=== PATIENT | male | born 1950 | race Caucasian/White ===

== ENCOUNTER 2022-07-13 14:33 | Inpatient (IN) | payer OTHER, SELFPAY ==
[2022-07-13 14:53] VITALS: BP 173/96; PULSE 105; RESP 16; TEMP 36.6; O2SAT 97; BMI 50.1
[2022-07-13 17:02] VITALS: PULSE 18; RESP 16
--- NOTE | 2022-07-13 17:57 | XRR_ITS ---
PROCEDURE INFORMATION: Exam: XR Chest Exam date and time: 07/13/2022 6:33 PM Age: 71 years old Clinical indication: Shortness of breath; Additional info: Bloating TECHNIQUE: Imaging protocol: Radiologic exam of the chest. Views: 1 view. COMPARISON: No relevant prior studies available. FINDINGS: Lungs: Right lower lobe pneumonia. Pulmonary vascular congestion. Pleural spaces: Trace bilateral pleural effusions suspected. Heart/Mediastinum: Cardiomegaly. Bones/joints: Unremarkable. XR/XR chest 1V portable [id number] IMPRESSION: 1. Right lower lobe pneumonia. 2. Cardiomegaly. 3. Pulmonary vascular congestion. 4. Trace bilateral pleural effusions suspected.
--- NOTE | 2022-07-13 17:58 | ECG_ITS ---
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 Measurements Intervals [place] Rate: 105 P: LA: QRS: 29 QRSD: 93 T: 72 QT: 374 QTc: 496 Interpretive Statements ATRIAL FIBRILLATION WITH RAPID VENTRICULAR RESPONSE ABNORMAL RHYTHM ECG No previous ECG available for comparison Electronically Signed On 07-13-2022 21:48:07 CDT by Julianne Rees M.D. [id number]
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
[2022-07-13 20:01] LABS: Basophils % 0.3 %; Eosinophils % 0.6 %; Hematocrit 43.6 % (42.0-52.0); Hemoglobin 13.5 g/dL (11.7-16.6); Lymphocytes # 0.9 10^3/uL (0.8-4.8); Lymphocytes % 12.6 %; Mean Corpuscular Hemoglobin 30.3 pg (28.0-34.0); Mean Corpuscular Volume 97.8 fl (80-94); Mean Platelet Volume 10.7 fL (7.4-10.4); Monocytes # 0.7 10^3/uL (0.2-0.9); Monocytes % 10.4 %; Neutrophils # 5.15 10^3/uL (1.8-7.7); Neutrophils % 75.8 %; Nucleated Red Blood Cells % 0 %; Platelet Count 221 10^3/cmm (130-400); Red Blood Count 4.46 10^6/uL (4.1-5.3); Red Cell Distribution Width 14.8 % (12.1-15.1); White Blood Count 6.8 10^3/uL (4.0-10.0)
--- NOTE | 2022-07-13 20:05 | CTR_ITS ---
PROCEDURE INFORMATION: Exam: CT Abdomen And Pelvis Without Contrast Exam date and time: 07/13/2022 8:13 PM Age: 71 years old Clinical indication: Bloating; Prior surgery; Surgery type: Gastric. Appy. Gb; Patient HX: C/O abd distention. Banuelos in place. ; Additional info: Increasing distention TECHNIQUE: Imaging protocol: Computed tomography of the abdomen and pelvis without contrast. Radiation optimization: All CT scans at this facility use at least one of these dose optimization techniques: automated exposure control; mA and/or kV adjustment per patient size (includes targeted exams where dose is matched to clinical indication); or iterative reconstruction. COMPARISON: CR (CHEST, ) 07/13/2022 6:33 PM RADIATION DOSE METRICS: Total DLP (mGy-cm): 1289.4 FINDINGS: Lungs: Bibasilar atelectasis versus minimal infiltrate. Pleural spaces: Moderate bilateral pleural effusions. Liver: Normal. No mass. Gallbladder and bile ducts: Cholecystectomy. Pancreas: Normal. No ductal dilation. Spleen: Normal. No splenomegaly. Adrenal glands: Right adrenal 3.9 cm indeterminate nodule, dedicated nonemergent adrenal imaging could further evaluate this. Kidneys and ureters: Normal. No hydronephrosis. Stomach and bowel: Unremarkable. No obstruction. No mucosal thickening. Appendix: No evidence of appendicitis. Intraperitoneal space: Unremarkable. No free air. No significant fluid collection. Vasculature: Unremarkable. No abdominal aortic aneurysm. Lymph nodes: Unremarkable. No enlarged lymph nodes. Urinary bladder: Banuelos catheter in the urinary bladder. Reproductive: Unremarkable as visualized. Bones/joints: Unremarkable. No acute fracture. Soft tissues: Anasarca suspected. CT/CT abdomen pelvis wo con [id number] IMPRESSION: 1. Negative for acute inflammatory process in the abdomen or pelvis. 2. Moderate bilateral pleural effusions. 3. Bibasilar atelectasis versus minimal infiltrate. 4. Cholecystectomy. 5. Right adrenal 3.9 cm indeterminate nodule, dedicated nonemergent adrenal imaging could further evaluate this. 6. Anasarca suspected. 7. Banuelos catheter in the urinary bladder.
[2022-07-13 20:28] LABS: Alanine Aminotransferase 15 U/L (0-41); Albumin Level 3.4 g/dL (3.5-5.2); Alkaline Phosphatase 196 U/L (40-130); Anion Gap 13.3 (5-19); Aspartate Amino Transferase 21 U/L (0-40); Blood Urea Nitrogen 19 mg/dL (8-23); Carbon Dioxide 28 mmol/L (22-29); Chloride 102 mmol/L (98-107); Globulin 4.4 g/dL (1.3-4.6); Glucose 91 mg/dL (65-115); Lipase 21 U/L (13-60); NT Pro B Type Natriuretic Pept 7072 pg/mL (0-125); Osmolality Calculated 290 mOsm/kg (285-295); Potassium 4.3 mmol/L (3.5-5.1); Sodium 139 mmol/L (136-145); Total Bilirubin 1.1 mg/dL (0.15-1.2); Total Protein 7.8 g/dL (6.6-8.7)
[2022-07-13 21:13] LABS: Troponin T (5th) Once 33 ng/L (0-15)
[2022-07-13] MEDS: FUROsemide 10 mg/mL SDV 4mL 40 MG IVP (21:42)
[2022-07-13 22:00] VITALS: BP 166/109; PULSE 95; RESP 31; O2SAT 95
[2022-07-13 22:00] LABS: Add Urine Microscopic? YES; Bilirubin Urine Neg (Negative); Blood Urine 3+ (Negative); Glucose Urine UA Norm (Normal); Ketones Urine 1+ (Negative); Leukocyte Esterase Urine 1+ (Negative); Nitrate Urine Negative (Negative); Protein Urine 1+ (Negative); Urine Appearance Hazy (CLEAR); Urine Color Yellow (Yellow); Urobilinogen Urine 1 mg/dL (Negative); pH Urine 5 (5-7)
[2022-07-13 22:01] LABS: Add Urine Culture? Yes; Bacteria Urine 2+ /hpf; Calcium Oxalate Crystals Urine 1 /hpf; RBC Urine TOO NUMEROUS TO CNT /hpf (0-2); Squamous Epithelial Cell Urine 0-4 /hpf (0-5)
[2022-07-13 22:40] VITALS: BP 165/112; PULSE 95; RESP 31; O2SAT 95
[2022-07-14] VITALS (8 sets, daily range): BP systolic 119–164; BP diastolic 75–110; PULSE 77–103; RESP 16–18; TEMP 36.3–36.8; O2SAT 91–95; BMI 53.1
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
--- NOTE | 2022-07-14 00:19 | USCV_ITS ---
Transthoracic Echo w Contrast Philip Rust Age: 71 Gender: M : 1950 Exam Date: 07/14/2022 03:43 Ordering Phys: Yseika Dalton MD Technologist: AURELIA [place] [facility] [place]: New onset atrial fibrillation, CHF, Morbid obesity. BP: 165 / 112 HR: 95 Rhythm: Atrial fibrillation Technical Quality: Poor because of body habitus MEASUREMENTS (Male / Female) Normal Values 2D ECHO LV Diastolic Diameter PLAX 4.9 cm 4.2 - 5.9 / 3.9 - 5.3 cm LV Systolic Diameter PLAX 4.0 cm IVS Diastolic Thickness 1.7 cm 0.6 - 1.0 / 0.6 - 0.9 cm IVS Systolic Thickness 2.4 cm LVPW Diastolic Thickness 1.2 cm 0.6 - 1.0 / 0.6 - 0.9 cm LVPW Systolic Thickness 1.4 cm LVOT Diameter 2.3 cm LV Ejection Fraction 2D Teich 36.3 % LV Ejection Fraction MOD 2C 51.1 % LV Ejection Fraction 2C AL 52.2 % LA Diameter 4.8 cm LA Width 5.0 cm LA Height 7.1 cm RA Width 5.7 cm RA Height 6.3 cm Aorta at Sinotubular Diameter 2.8 cm M-MODE Aortic Annulus Diameter 3.1 cm LA Ao Ratio MM 1.6 MV E Point Septal Separation 0.9 cm DOPPLER AV Peak Velocity 153.0 cm/s LVOT Peak Velocity 81.0 cm/s AV Area Cont Eq vti 2.0 cm squared AV Area Cont Eq pk 2.3 cm squared MV Peak Velocity 184.0 cm/s MV Area PHT 4.2 cm squared MV E' Velocity 82.0 cm/s Mitral E to MV E' Ratio 18.9 Mitral E to LV E' Lateral Ratio 18.2 Mitral E to LV E' Septal Ratio 19.6 TR Peak Velocity 332.0 cm/s TR Peak Gradient 44.1 mmHg TV Peak E Velocity 63.0 cm/s Right Atrial Pressure 10.0 mmHg Pulmonary Artery Systolic Pressu 54.1 mmHg PV Peak Velocity 114.0 cm/s RV Acceleration Time 0.1 s RV Ejection Time 0.3 s RV AcT/ET 0.4 FINDINGS Left Ventricle Normal left ventricular cavity size. Normal left ventricular systolic function. Left ventricular ejection fraction is estimated at 55 %. No diagnostic regional wall motion abnormality. Abnormal septal motion. Rhythm precludes evaluation of diastolic function. Right Ventricle Normal right ventricular size and low normal systolic function. Right ventricular systolic pressure 57 mmHg. Right Atrium Normal right atrial size. Left Atrium Mildly increased left atrial size. Mitral Valve Mild mitral annular calcification. Structurally normal mitral valve. No mitral valve stenosis. Mild mitral valve regurgitation. Aortic Valve Aortic valve not well visualized. Probably trileaflet aortic valve. No aortic valve stenosis. No aortic valve regurgitation. Tricuspid Valve Structurally normal tricuspid valve. No tricuspid valve stenosis. Mild tricuspid valve regurgitation. Pulmonic Valve Pulmonic valve not well visualized. Pericardium No pericardial effusion. Aorta Normal-sized aortic root. IVC Inferior vena cava not visualized. CONCLUSIONS 1. This is a technically difficult study. Optison was used per protocol. 2. Normal left ventricular cavity size and left ventricular systolic function. Left ventricular ejection fraction is estimated at 55%. No diagnostic regional wall motion abnormality. Abnormal septal motion. 3. Normal right ventricular size and low normal systolic function. 4. Moderate pulmonary hypertension with pulmonary pressure estimated at 57 mmHg. 5. Mild mitral and tricuspid valve regurgitation. 6. No prior similar studies to compare. Miya Fitch MD (Electronically Signed) Final Date: 14 July 2022 12:40 S
--- NOTE | 2022-07-14 00:19 | USCV_ITS ---
Philip Rust Age: 71 Gender: M : 1950 Exam Date: 07/14/2022 03:05 Ordering Phys: Yesika Dalton MD Technologist: AURELIA [place] [facility] [place]ication: Morbid obesity. increased LE edema x 4 days. History of DVT and pulmonary emboli. Patient is a poor historian. HISTORY: Morbid obesity. increased LE edema x 4 days. History of DVT and pulmonary emboli. Patient is a poor historian. PROCEDURES: Venous duplex imaging was performed in bilateral lower extremities. The venous duplex Doppler examination of both lower extremities was performed in the standard fashion. The following venous structures were evaluated: common femoral vein, profunda vein, proximal portion of the greater saphenous vein, superficial femoral vein, and the popliteal vein. In addition, the posterior tibial veins were evaluated. Serial compression, augmentation maneuvers, and spectral Doppler flow evaluation were performed, which were normal. Bilaterally, the common femoral, superficial femoral, profunda femoral, popliteal, posterior tibial, and greater saphenous veins were identified and interrogated in the standard fashion. These veins were found to be easily compressible with spontaneous blood flow. No evidence of thrombus noted. CONCLUSIONS No evidence of right lower extremity DVT. No evidence of left lower extremity DVT. Wilfred Hernandez MD (Electronically Signed) Final Date: 14 July 2022 09:04 S
[2022-07-14] MEDS: metoprolol tartrate 25 mg Tablet 12.5 MG PO ×3 (01:27→20:15)
[2022-07-14] MEDS: ALPRAZolam 0.5 mg Tablet PO ×2 (01:27→20:13)
[2022-07-14] MEDS: enoxaparin 40 mg/0.4 mL Syringe SUBCUT (01:28)
[2022-07-14] MEDS: perflutren protein-a microsphr 0.22 mg/mL SDV 3 mL IV (05:33)
--- NOTE | 2022-07-14 08:25 | PC.PHAR ---
pt states he takes no rx medications-pt states he would like to use the meds to beds
--- NOTE | 2022-07-14 08:46 | ECG_ITS ---
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 Measurements Intervals [place] Rate: 102 P: [place]: QRS: 35 QRSD: 96 T: 100 QT: 388 QTc: 505 Interpretive Statements ATRIAL FIBRILLATION WITH RAPID VENTRICULAR RESPONSE NONSPECIFIC T-WAVE ABNORMALITY Compared to ECG 07/13/2022 18:27:17 T-wave abnormality now present Electronically Signed On 07-14-2022 12:08:40 CDT by Miya Fitch M.D. [id number]
[2022-07-14] MEDS: FUROsemide 10 mg/mL SDV 4mL 40 MG IVP ×2 (09:03→21:26)
[2022-07-14] MEDS: pantoprazole DR 40 mg Tablet PO ×2 (09:04→20:13)
[2022-07-14] MEDS: tamsulosin 0.4 mg Capsule PO (09:05)
[2022-07-14] MEDS: heparin 5,000 unit/mL INJ 1 mL IV (09:10)
[2022-07-14] MEDS: heparin drip 25,000 UNIT/500 ML PREMIX 36 UNIT IV (09:28)
[2022-07-14 10:02] LABS: Platelet Count 224 10^3/cmm (130-400)
[2022-07-14 10:18] LABS: Troponin(5th) Baseline 36 ng/L (0-15)
[2022-07-14] MEDS: cefTRIAXone 1,000 MG in sodium chloride 0.9% (plus) 50 ML 100 MG IV (10:30)
--- NOTE | 2022-07-14 10:40 | PM.PN ---
Subjective Subjective: Patient was seen this morning, he complains of generalized anasarca, bilateral extremity edema, does not complain of chest pain, no shortness of breath Vitals/I&O/Wt Last Vital Signs Temp 97.5 F L 07/14/22 07:50 Pulse 86 07/14/22 07:50 Resp 18 07/14/22 07:50 BP 128/75 07/14/22 07:50 Pulse Ox 91 07/14/22 07:50 O2 Del Method 07/14/22 07:50 07/13/22 07/14/22 07/14/22 22:59 06:59 14:59 Intake Total 50 / 50 360 / 360 Output Total 4700 / 4700 1000 / 1000 Balance -4650 / -4650 -640 / -640 Weight last 48 hrs Weight 158.757 kg Weight 149.685 kg Physical Exam Const: COMMON NORMALS: no acute distress and patient oriented x3 Resp: COMMON NORMALS: normal respiratory effort, No retractions, No use of accessory muscles and clear to auscultation bilaterally AUSCULTATION: clear to auscultation bilaterally Cardio: COMMON NORMALS: regular rate, regular rhythm, S1 normal heart sound present and S2 normal heart sound present RATE: regular rate RHYTHM: regular rhythm HEART SOUNDS: S1 normal heart sound present and S2 normal heart sound present GI: COMMON NORMALS: Normal to inspection, nondistended, normoactive bowel sounds present, Soft to palpation and non-tender PALPATION: Yes Soft to palpation OTHER: Has generalized anasarca Neuro: COMMON NORMALS: patient oriented x3 Psych: COMMON NORMALS: mental status grossly normal Skin: NARRATIVE SKIN EXAM: Has bilateral 2+ pitting edema Urinary Catheter Management: Banuelos: Cath Placed During This Visit: yes Reason for Continuing Indwelling Catheter: Acute Urinary Retention or Obstruction Urinary Catheter Date of Insertion: 07/13/22 Data : 07/14/22 09:30 07/13/22 19:48 A&P Assessment and plan (1) Atrial fibrillation: (2) Anasarca: Plan 71-year-old male with a past medical history of hypertension, presenting today with chief complaints of progressively increasing lower extremity and abdominal swelling, clinically appearing to be anasarca. Source is currently under evaluation Given lower extremity swelling, bilateral pleural effusions, pulmonary congestion on chest x-ray, elevated BNP, atrial fibrillation and a possible history of valvular issues, suspect that may be related to underlying CHF. Will obtain echocardiogram to estimate EF, diastolic function, evaluate for valvular function. Other possibilities for diffuse anasarca include underlying liver cirrhosis given history of daily alcohol consumption, however his LFTs are currently within normal limits and liver appears to be normal on CAT scan from today. His albumin is normal range at 3.4. Patient had urinary retention, needed placement of Banuelos catheter by urology, denies any known history of CKD. Creatinine today is normal at 0.9. Less likely that anasarca related to CKD. denies any past history of COPD, echocardiogram ordered to evaluate for any right heart failure. Start Lasix 40 mg IV every 12 hours Monitor urine output and renal function closely. Screen for diabetes mellitus given morbid obesity, check lipid panel. New onset atrial fibrillation, currently rate controlled, check EKG and troponin series. No acute ST-T wave changes noted currently. will start low-dose metoprolol and monitor for response. CHADS2 vascular score assuming history of at least hypertension is at 2. may have additional points added if w/up confirms CHF. Reports a past history of Hb 3.2 needing several units blood transfusion. Uncertain if this was related to GI bleed. Per patient no cause was able to be determined at the time. Will obtain records from [facility]. 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
--- NOTE | 2022-07-14 10:46 | ECG_ITS ---
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 Measurements Intervals [place] Rate: 80 P: [place]: QRS: 32 QRSD: 95 T: 88 QT: 391 QTc: 453 Interpretive Statements ATRIAL FIBRILLATION WITH ABERRANT CONDUCTION OR VENTRICULAR PREMATURE COMPLEXES NONSPECIFIC T-WAVE ABNORMALITY ABNORMAL RHYTHM ECG Compared to ECG 07/14/2022 09:04:43 Ventricular premature complex(es) now present Aberrant conduction of supraventricular beat(s) now present T-wave abnormality still present Electronically Signed On 07-14-2022 12:13:12 CDT by Miya Fitch M.D. [id number]
[2022-07-14 11:03] LABS: Ferritin 39 ng/mL (30-400); Iron 41 ug/dL (59-158); Percent Saturation 15.4 % (20-50); Total Iron Binding Capacity 266 mcg/dl; Unsaturated Iron Binding 225 ug/dL (112-347)
[2022-07-14 12:04] LABS: Troponin 5 2HR 29.21 ng/L (0-15)
[2022-07-14 12:05] LABS: Troponin 5 2HR Delta -6.79 ABS# (0-10)
[2022-07-14] MEDS: sucralfate 1 gm Tablet PO ×3 (13:19→20:15)
--- NOTE | 2022-07-14 14:46 | ECG_ITS ---
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 Measurements Intervals [place] Rate: 97 P: [place]: QRS: 33 QRSD: 92 T: 69 QT: 389 QTc: 495 Interpretive Statements ATRIAL FIBRILLATION ABNORMAL RHYTHM ECG Compared to ECG 07/14/2022 10:44:37 Ventricular premature complex(es) no longer present Aberrant conduction of supraventricular beat(s) no longer present T-wave abnormality no longer present Electronically Signed On 07-14-2022 16:26:27 CDT by Miya Fitch M.D. [id number]
[2022-07-14 16:13] LABS: Troponin 5 6HR 32.11 ng/L (0-15)
[2022-07-14 16:20] LABS: Partial Thromboplastin Time 140.9 SECONDS (23.9-36.7)
[2022-07-14 16:32] LABS: Troponin 5 6HR Delta -3.89 ng/L (0-12)
[2022-07-14] MEDS: ferrous sulfate EC 325 mg Tablet PO (17:20)
[2022-07-14 19:08] LABS: Basophils % 0.3 %; Eosinophils # 0.1 10^3/uL (0.0-0.8); Hematocrit 39.3 % (42.0-52.0); Hemoglobin 11.9 g/dL (11.7-16.6); Lymphocytes # 0.8 10^3/uL (0.8-4.8); Lymphocytes % 11.3 %; Mean Corpuscular HGB Conc 30.3 g/dL (30.0-36.0); Mean Corpuscular Hemoglobin 29.5 pg (28.0-34.0); Mean Corpuscular Volume 97.5 fl (80-94); Mean Platelet Volume 10.7 fL (7.4-10.4); Monocytes # 0.7 10^3/uL (0.2-0.9); Monocytes % 10.7 %; Neutrophils # 4.99 10^3/uL (1.8-7.7); Neutrophils % 75.4 %; Nucleated Red Blood Cells % 0 %; Platelet Count 179 10^3/cmm (130-400); Red Blood Count 4.03 10^6/uL (4.1-5.3); Red Cell Distribution Width 14.8 % (12.1-15.1); White Blood Count 6.6 10^3/uL (4.0-10.0)
--- NOTE | 2022-07-14 19:35 | PC.NURSE ---
BEDSIDE REPORT TAKEN FROM JASIEL DOUGLAS. PATIENT A&O, VSS. NO FURTHER NEEDS AT THIS TIME.
[2022-07-14 19:38] LABS: Partial Thromboplastin Time 130.5 SECONDS (23.9-36.7)
[2022-07-14 23:12] LABS: Partial Thromboplastin Time 75.2 SECONDS (23.9-36.7)
[2022-07-14] MEDS: heparin drip 25,000 UNIT/500 ML PREMIX 25 UNIT IV (23:37)
[2022-07-15] VITALS (8 sets, daily range): BP systolic 123–156; BP diastolic 72–99; PULSE 81–106; RESP 17–22; TEMP 36.3–36.9; O2SAT 88–97
[2022-07-15 05:28] LABS: Basophils % 0.3 %; Eosinophils # 0.2 10^3/uL (0.0-0.8); Eosinophils % 2.3 %; Hematocrit 40.7 % (42.0-52.0); Hemoglobin 12.4 g/dL (11.7-16.6); Mean Corpuscular HGB Conc 30.5 g/dL (30.0-36.0); Mean Corpuscular Hemoglobin 29.5 pg (28.0-34.0); Mean Corpuscular Volume 96.7 fl (80-94); Mean Platelet Volume 10.6 fL (7.4-10.4); Monocytes # 0.7 10^3/uL (0.2-0.9); Monocytes % 11.4 %; Neutrophils # 4.58 10^3/uL (1.8-7.7); Neutrophils % 70.8 %; Nucleated Red Blood Cells % 0 %; Platelet Count 194 10^3/cmm (130-400); Red Blood Count 4.21 10^6/uL (4.1-5.3); Red Cell Distribution Width 14.8 % (12.1-15.1); White Blood Count 6.5 10^3/uL (4.0-10.0)
[2022-07-15 05:39] LABS: Partial Thromboplastin Time 69.4 SECONDS (23.9-36.7)
[2022-07-15 05:53] LABS: Alanine Aminotransferase 12 U/L (0-41); Albumin Level 2.9 g/dL (3.5-5.2); Alkaline Phosphatase 164 U/L (40-130); Anion Gap 11.3 (5-19); Aspartate Amino Transferase 16 U/L (0-40); Blood Urea Nitrogen 16 mg/dL (8-23); Calcium 8.2 mg/dL (8.5-10.5); Carbon Dioxide 32 mmol/L (22-29); Chloride 99 mmol/L (98-107); Creatinine Clr Calc Pharmacy 122.1041; Globulin 3.8 g/dL (1.3-4.6); Glucose 89 mg/dL (65-115); Osmolality Calculated 289 mOsm/kg (285-295); Potassium 3.3 mmol/L (3.5-5.1); Sodium 139 mmol/L (136-145); Thyroid Stimulating Hormone 2.19 uIU/mL (0.27-4.20); Total Protein 6.7 g/dL (6.6-8.7)
[2022-07-15] MEDS: sucralfate 1 gm Tablet PO ×4 (06:12→20:46)
[2022-07-15] MEDS: potassium chloride ER 20 mEq Tablet 40 MEQ PO ×2 (10:02→20:46)
[2022-07-15] MEDS: ferrous sulfate EC 325 mg Tablet PO ×2 (10:02→17:16)
[2022-07-15] MEDS: FUROsemide 10 mg/mL SDV 4mL 40 MG IVP ×2 (10:03→20:47)
[2022-07-15] MEDS: tamsulosin 0.4 mg Capsule PO (10:03)
[2022-07-15] MEDS: cefTRIAXone 1,000 MG in sodium chloride 0.9% (plus) 50 ML 100 MG IV (10:04)
[2022-07-15] MEDS: pantoprazole DR 40 mg Tablet PO ×2 (10:04→20:47)
[2022-07-15] MEDS: metoprolol tartrate 25 mg Tablet 12.5 MG PO ×2 (10:06→20:46)
--- NOTE | 2022-07-15 10:09 | PM.PN ---
Subjective Subjective: Patient was seen this morning, he tells me he continues to feel fluid overloaded, trouble moving due to fluid overload Vitals/I&O/Wt Last Vital Signs Temp 98.1 F 07/15/22 07:37 Pulse 81 07/15/22 07:37 Resp 17 07/15/22 07:37 BP 156/99 07/15/22 07:37 Pulse Ox 95 07/15/22 07:37 O2 Del Method 07/15/22 07:37 07/14/22 07/15/22 07/15/22 22:59 06:59 14:59 Intake Total 300.6 / 830.6 812.4 / 1643.0 120 / 120 Output Total 1000 / 3000 2600 / 5600 Balance -699.4 / -2169.4 -1787.6 / -3957.0 120 / 120 Weight last 48 hrs Weight 152.226 kg Weight 158.757 kg Weight 149.685 kg Physical Exam Const: COMMON NORMALS: no acute distress and patient oriented x3 Resp: COMMON NORMALS: normal respiratory effort, No retractions, No use of accessory muscles and clear to auscultation bilaterally AUSCULTATION: clear to auscultation bilaterally Cardio: COMMON NORMALS: regular rate, regular rhythm, S1 normal heart sound present and S2 normal heart sound present RATE: regular rate RHYTHM: regular rhythm HEART SOUNDS: S1 normal heart sound present and S2 normal heart sound present GI: COMMON NORMALS: Normal to inspection, nondistended, normoactive bowel sounds present and non-tender Extremity: NARRATIVE EXTREMITY EXAM: 2+ pitting edema, generalized anasarca Neuro: COMMON NORMALS: patient oriented x3 Psych: COMMON NORMALS: mental status grossly normal Urinary Catheter Management: Banuelos: Cath Placed During This Visit: yes Reason for Continuing Indwelling Catheter: Not indwelling catheter Urinary Catheter Date of Insertion: 07/13/22 Data : 07/15/22 05:21 07/15/22 05:21 Micro: Microbiology 07/13/22 20:08 Urine Culture - Preliminary Urine,Clean Catch Gram Negative Rods A&P Assessment and plan (1) Atrial fibrillation: (2) Anasarca: Plan 71-year-old male with a past medical history of hypertension, presenting today with chief complaints of progressively increasing lower extremity and abdominal swelling, clinically appearing to be anasarca. Source is currently under evaluation Given lower extremity swelling, bilateral pleural effusions, pulmonary congestion on chest x-ray, elevated BNP, atrial fibrillation and a possible history of valvular issues, suspect that may be related to underlying CHF. Will obtain echocardiogram to estimate EF, diastolic function, evaluate for valvular function. Other possibilities for diffuse anasarca include underlying liver cirrhosis given history of daily alcohol consumption, however his LFTs are currently within normal limits and liver appears to be normal on CAT scan from today. His albumin is normal range at 3.4. Patient had urinary retention, needed placement of Banuelos catheter by urology, denies any known history of CKD. Creatinine today is normal at 0.9. Less likely that anasarca related to CKD. denies any past history of COPD, echocardiogram ordered to evaluate for any right heart failure. Start Lasix 40 mg IV every 12 hours Monitor urine output and renal function closely. Screen for diabetes mellitus given morbid obesity, check lipid panel. New onset atrial fibrillation, currently rate controlled, check EKG and troponin series. No acute ST-T wave changes noted currently. will start low-dose metoprolol and monitor for response. CHADS2 vascular score assuming history of at least hypertension is at 2. may have additional points added if w/up confirms CHF. Reports a past history of Hb 3.2 needing several units blood transfusion. Uncertain if this was related to GI bleed. Per patient no cause was able to be determined at the time. Will obtain records from [facility]. 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
[2022-07-15 13:28] LABS: Partial Thromboplastin Time 54.7 SECONDS (23.9-36.7)
[2022-07-15] MEDS: heparin 5,000 unit/mL INJ 1 mL 2800 UNIT IVP (15:08)
[2022-07-15] MEDS: heparin drip 25,000 UNIT/500 ML PREMIX 28 UNIT IV (19:20)
[2022-07-15] MEDS: ALPRAZolam 0.5 mg Tablet PO (20:46)
[2022-07-16] VITALS (8 sets, daily range): BP systolic 119–155; BP diastolic 71–95; PULSE 76–105; RESP 16–19; TEMP 36.4–36.8; O2SAT 90–97
[2022-07-16] MEDS: acetaminophen 325 mg Tablet 650 MG PO (02:10)
[2022-07-16] MEDS: bacitracin ointment 28 gm 1 APPLIC TOPICAL (03:12)
[2022-07-16 05:08] LABS: Basophils % 0.2 %; Eosinophils # 0.2 10^3/uL (0.0-0.8); Eosinophils % 2.6 %; Hematocrit 40.7 % (42.0-52.0); Hemoglobin 12.3 g/dL (11.7-16.6); Lymphocytes # 0.9 10^3/uL (0.8-4.8); Lymphocytes % 13.5 %; Mean Corpuscular HGB Conc 30.2 g/dL (30.0-36.0); Mean Corpuscular Hemoglobin 29.3 pg (28.0-34.0); Mean Corpuscular Volume 96.9 fl (80-94); Monocytes # 0.9 10^3/uL (0.2-0.9); Monocytes % 13.3 %; Neutrophils # 4.58 10^3/uL (1.8-7.7); Neutrophils % 70.1 %; Nucleated Red Blood Cells % 0 %; Platelet Count 197 10^3/cmm (130-400); Red Cell Distribution Width 14.7 % (12.1-15.1); White Blood Count 6.5 10^3/uL (4.0-10.0)
[2022-07-16 05:36] LABS: Partial Thromboplastin Time 48.9 SECONDS (23.9-36.7)
[2022-07-16 05:49] LABS: Blood Urea Nitrogen 15 mg/dL (8-23); Calcium 8.3 mg/dL (8.5-10.5); Carbon Dioxide 32 mmol/L (22-29); Chloride 97 mmol/L (98-107); Creatinine Clr Calc Pharmacy 122.1041; Glucose 97 mg/dL (65-115); Osmolality Calculated 287 mOsm/kg (285-295); Sodium 138 mmol/L (136-145)
[2022-07-16] MEDS: heparin 5,000 unit/mL INJ 1 mL IV (05:56)
[2022-07-16] MEDS: sucralfate 1 gm Tablet PO ×4 (05:57→20:09)
[2022-07-16] MEDS: cefTRIAXone 1,000 MG in sodium chloride 0.9% (plus) 50 ML 100 MG IV (07:47)
[2022-07-16] MEDS: tamsulosin 0.4 mg Capsule PO (07:47)
[2022-07-16] MEDS: pantoprazole DR 40 mg Tablet PO ×2 (07:48→20:09)
[2022-07-16] MEDS: potassium chloride ER 20 mEq Tablet 40 MEQ PO ×2 (07:48→20:09)
[2022-07-16] MEDS: ferrous sulfate EC 325 mg Tablet PO ×2 (07:48→16:45)
[2022-07-16] MEDS: metoprolol tartrate 25 mg Tablet 12.5 MG PO ×2 (08:04→20:09)
[2022-07-16] MEDS: FUROsemide 10 mg/mL SDV 4mL 40 MG IVP ×2 (09:19→20:12)
[2022-07-16] MEDS: spironolactone 25 mg Tablet PO (09:20)
--- NOTE | 2022-07-16 11:57 | PC.SOCIAL ---
IMM update IMM updated with patient. Verbalized an understanding. Copy Pg 2 provided. Initialled, dated, timed, and placed in chart.
[2022-07-16] MEDS: heparin drip 25,000 UNIT/500 ML PREMIX 31 UNIT IV (12:00)
[2022-07-16 12:36] LABS: Partial Thromboplastin Time 94.5 SECONDS (23.9-36.7)
--- NOTE | 2022-07-16 12:55 | PM.PN ---
Subjective Subjective: Patient was seen this morning, he tells me that he continues to complain of weakness, no nausea, no vomiting, no bloody or black stools, he does feel better Vitals/I&O/Wt Last Vital Signs Temp 97.6 F 07/16/22 11:28 Pulse 88 07/16/22 11:28 Resp 17 07/16/22 11:28 BP 128/88 07/16/22 11:28 Pulse Ox 93 07/16/22 11:28 O2 Del Method 07/16/22 11:28 07/15/22 07/16/22 07/16/22 22:59 06:59 14:59 Intake Total 172.083 / 790.000 297.267 / 1087.267 717.55 / 717.55 Output Total 2350 / 3550 1450 / 5000 1000 / 1000 Balance -2177.917 / -2760.000 -1152.733 / -3912.733 -282.45 / -282.45 Weight last 48 hrs Weight 152.226 kg Physical Exam Const: COMMON NORMALS: no acute distress and patient oriented x3 Resp: COMMON NORMALS: normal respiratory effort, No retractions, No use of accessory muscles and clear to auscultation bilaterally AUSCULTATION: clear to auscultation bilaterally Cardio: COMMON NORMALS: regular rate, regular rhythm, S1 normal heart sound present and S2 normal heart sound present RATE: regular rate RHYTHM: regular rhythm HEART SOUNDS: S1 normal heart sound present and S2 normal heart sound present GI: COMMON NORMALS: Normal to inspection, nondistended, normoactive bowel sounds present and non-tender Extremity: NARRATIVE EXTREMITY EXAM: Generalized anasarca, 2+ pitting edema Neuro: COMMON NORMALS: patient oriented x3 Psych: COMMON NORMALS: mental status grossly normal Urinary Catheter Management: Banuelos: Cath Placed During This Visit: yes Reason for Continuing Indwelling Catheter: Acute Urinary Retention or Obstruction Urinary Catheter Date of Insertion: 07/13/22 Data : 07/16/22 04:29 07/16/22 04:29 Micro: Microbiology 07/13/22 20:08 Urine Culture - Preliminary Urine,Clean Catch Gram Negative Rods A&P Assessment and plan (1) Atrial fibrillation: (2) Anasarca: (3) UTI (urinary tract infection): Plan 71-year-old male with a past medical history of hypertension, presenting today with chief complaints of progressively increasing lower extremity and abdominal swelling, clinically appearing to be anasarca. Source is currently under evaluation Given lower extremity swelling, bilateral pleural effusions, pulmonary congestion on chest x-ray, elevated BNP, atrial fibrillation and a possible history of valvular issues, suspect that may be related to underlying CHF. Will obtain echocardiogram to estimate EF, diastolic function, evaluate for valvular function. Other possibilities for diffuse anasarca include underlying liver cirrhosis given history of daily alcohol consumption, however his LFTs are currently within normal limits and liver appears to be normal on CAT scan from today. His albumin is normal range at 3.4. Patient had urinary retention, needed placement of Banuelos catheter by urology, denies any known history of CKD. Creatinine today is normal at 0.9. Less likely that anasarca related to CKD. denies any past history of COPD, echocardiogram ordered to evaluate for any right heart failure. Patient is -12 liters Continue Lasix 40 mg IV every 12 hours Monitor urine output and renal function closely. Screen for diabetes mellitus given morbid obesity, check lipid panel. New onset atrial fibrillation, currently rate controlled, check EKG and troponin series. No acute ST-T wave changes noted currently. will start low-dose metoprolol and monitor for response. CHADS2 vascular score assuming history of at least hypertension is at 2. may have additional points added if w/up confirms CHF. Reports a past history of Hb 3.2 needing several units blood transfusion. Uncertain if this was related to GI bleed. Per patient no cause was able to be determined at the time. Will obtain records from [facility]. 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
[2022-07-16] MEDS: apixaban 5 mg Tablet PO (13:16)
[2022-07-16] MEDS: ALPRAZolam 0.5 mg Tablet PO (20:09)
[2022-07-17] VITALS (7 sets, daily range): BP systolic 125–151; BP diastolic 71–87; PULSE 72–103; RESP 16–18; TEMP 36.3–36.8; O2SAT 90–93
[2022-07-17] MEDS: apixaban 5 mg Tablet PO ×2 (00:29→12:56)
[2022-07-17 05:23] LABS: Basophils % 0.4 %; Eosinophils # 0.3 10^3/uL (0.0-0.8); Eosinophils % 4.6 %; Hematocrit 42.3 % (42.0-52.0); Lymphocytes # 1.2 10^3/uL (0.8-4.8); Mean Corpuscular HGB Conc 30.7 g/dL (30.0-36.0); Mean Corpuscular Hemoglobin 29.5 pg (28.0-34.0); Mean Corpuscular Volume 95.9 fl (80-94); Mean Platelet Volume 11.5 fL (7.4-10.4); Monocytes # 0.6 10^3/uL (0.2-0.9); Monocytes % 11.4 %; Neutrophils % 62.4 %; Nucleated Red Blood Cells % 0 %; Platelet Count 217 10^3/cmm (130-400); Red Blood Count 4.41 10^6/uL (4.1-5.3); Red Cell Distribution Width 14.7 % (12.1-15.1); White Blood Count 5.6 10^3/uL (4.0-10.0)
[2022-07-17 05:55] LABS: Estmated Average Glucose 94; Hemoglobin A1C 4.9 % (4.0-6.0)
[2022-07-17 05:58] LABS: Anion Gap 13.3 (5-19); Blood Urea Nitrogen 17 mg/dL (8-23); Calcium 8.7 mg/dL (8.5-10.5); Carbon Dioxide 29 mmol/L (22-29); Chloride 96 mmol/L (98-107); Creatinine Clr Calc Pharmacy 122.1041; Glucose 72 mg/dL (65-115); NT Pro B Type Natriuretic Pept 2668 pg/mL (0-125); Osmolality Calculated 278 mOsm/kg (285-295); Potassium 4.3 mmol/L (3.5-5.1); Sodium 134 mmol/L (136-145)
[2022-07-17] MEDS: sucralfate 1 gm Tablet PO ×4 (06:03→19:33)
[2022-07-17] MEDS: metoprolol tartrate 25 mg Tablet 12.5 MG PO ×2 (08:17→19:33)
[2022-07-17] MEDS: cefTRIAXone 1,000 MG in sodium chloride 0.9% (plus) 50 ML 100 MG IV (08:17)
[2022-07-17] MEDS: pantoprazole DR 40 mg Tablet PO ×2 (08:18→19:29)
[2022-07-17] MEDS: tamsulosin 0.4 mg Capsule PO (08:18)
[2022-07-17] MEDS: spironolactone 25 mg Tablet PO (08:18)
[2022-07-17] MEDS: nystatin powder 15 gm Btl 1 APPLIC TOPICAL ×2 (08:18→17:11)
[2022-07-17] MEDS: ferrous sulfate EC 325 mg Tablet PO ×2 (08:18→17:11)
[2022-07-17] MEDS: FUROsemide 10 mg/mL SDV 4mL 40 MG IVP ×2 (10:45→22:44)
--- NOTE | 2022-07-17 14:48 | P.PN_ITS ---
Subjective Subjective: Patient was seen this morning, he tells me he feels a lot better, but still feels distended, still has edema Vitals/I&O/Wt Last Vital Signs Temp 98.1 F 07/17/22 11:56 Pulse 76 07/17/22 11:56 Resp 16 07/17/22 11:56 BP 137/76 07/17/22 11:56 Pulse Ox 92 07/17/22 11:56 O2 Del Method 07/17/22 11:56 07/16/22 07/17/22 07/17/22 22:59 06:59 14:59 Intake Total 397.967 / 1115.517 650 / 650 Output Total 2100 / 4400 3400 / 3400 Balance 397.967 / -1184.483 -2100 / -3284.483 -2750 / -2750 Physical Exam Const: COMMON NORMALS: no acute distress and patient oriented x3 Resp: COMMON NORMALS: normal respiratory effort, No retractions, No use of accessory muscles and clear to auscultation bilaterally AUSCULTATION: clear to auscultation bilaterally Cardio: COMMON NORMALS: regular rate, regular rhythm, S1 normal heart sound present and S2 normal heart sound present RATE: regular rate RHYTHM: regular rhythm HEART SOUNDS: S1 normal heart sound present and S2 normal heart sound present GI: COMMON NORMALS: Normal to inspection, nondistended, normoactive bowel sounds present, non-tender and no masses Extremity: NARRATIVE EXTREMITY EXAM: 1+ pitting edema, generalized anasarca, improving Neuro: COMMON NORMALS: patient oriented x3 Psych: COMMON NORMALS: mental status grossly normal Urinary Catheter Management: Banuelos: Cath Placed During This Visit: yes Reason for Continuing Indwelling Catheter: Accurate Measurement of Urinary Output in Critically Ill Patients Urinary Catheter Date of Insertion: 07/13/22 Data : 07/17/22 03:50 07/17/22 03:50 Micro: Microbiology 07/13/22 20:08 Urine Culture - Final Urine,Clean Catch Proteus mirabilis A&P Assessment and plan (1) Atrial fibrillation: (2) Anasarca: (3) UTI (urinary tract infection): Plan 71-year-old male with a past medical history of hypertension, presenting today with chief complaints of progressively increasing lower extremity and abdominal swelling, clinically appearing to be anasarca. Source is currently under evaluation Given lower extremity swelling, bilateral pleural effusions, pulmonary congestion on chest x-ray, elevated BNP, atrial fibrillation and a possible history of valvular issues, suspect that may be related to underlying CHF. Will obtain echocardiogram to estimate EF, diastolic function, evaluate for valvular function. Other possibilities for diffuse anasarca include underlying liver cirrhosis given history of daily alcohol consumption, however his LFTs are currently within normal limits and liver appears to be normal on CAT scan from today. His albumin is normal range at 3.4. Patient had urinary retention, needed placement of Banuelos catheter by urology, denies any known history of CKD. Creatinine today is normal at 0.9. Less likely that anasarca related to CKD. denies any past history of COPD, echocardiogram ordered to evaluate for any right heart failure. Patient is -18 liters Continue Lasix 40 mg IV every 12 hours Monitor urine output and renal function closely. Screen for diabetes mellitus given morbid obesity, check lipid panel. New onset atrial fibrillation, currently rate controlled, check EKG and troponin series. No acute ST-T wave changes noted currently. will start low-dose metoprolol and monitor for response. CHADS2 vascular score assuming history of at least hypertension is at 2. may have additional points added if w/up confirms CHF. Reports a past history of Hb 3.2 needing several units blood transfusion. Uncertain if this was related to GI bleed. Per patient no cause was able to be determined at the time. Will obtain records from [facility]. Stop heparin drip, switch to Eliquis p, Protonix, Carafate, iron studies, Hemoccult stool, monitor hemoglobin UTI continue Rocephin Attestations Medical Necessity Statement*: Patient requires hospitalization for CHF, fluid overload Coding Level of Care Code Acute Microfilming Document Preparer for [facility] Fwd Diagnoses Atrial fibrillation I48.91 Anasarca R60.1 UTI (urinary tract infection) N39.0
[2022-07-17] MEDS: ALPRAZolam 0.5 mg Tablet PO (19:33)
[2022-07-18] VITALS (9 sets, daily range): BP systolic 99–128; BP diastolic 65–90; PULSE 80–97; RESP 14–18; TEMP 36.3–36.6; O2SAT 91–94
[2022-07-18] MEDS: apixaban 5 mg Tablet PO ×2 (01:36→13:14)
[2022-07-18 05:51] LABS: Basophils % 0.2 %; Eosinophils # 0.3 10^3/uL (0.0-0.8); Eosinophils % 5.9 %; Hematocrit 42.1 % (42.0-52.0); Hemoglobin 13.1 g/dL (11.7-16.6); Lymphocytes # 0.9 10^3/uL (0.8-4.8); Lymphocytes % 16.7 %; Mean Corpuscular HGB Conc 31.1 g/dL (30.0-36.0); Mean Corpuscular Hemoglobin 30.3 pg (28.0-34.0); Mean Corpuscular Volume 97.2 fl (80-94); Mean Platelet Volume 10.5 fL (7.4-10.4); Monocytes # 0.6 10^3/uL (0.2-0.9); Monocytes % 11.2 %; Neutrophils # 3.35 10^3/uL (1.8-7.7); Neutrophils % 65.6 %; Nucleated Red Blood Cells % 0 %; Platelet Count 213 10^3/cmm (130-400); Red Blood Count 4.33 10^6/uL (4.1-5.3); Red Cell Distribution Width 14.7 % (12.1-15.1); White Blood Count 5.1 10^3/uL (4.0-10.0)
[2022-07-18 06:09] LABS: Anion Gap 12.1 (5-19); Blood Urea Nitrogen 17 mg/dL (8-23); Calcium 8.9 mg/dL (8.5-10.5); Carbon Dioxide 34 mmol/L (22-29); Chloride 96 mmol/L (98-107); Glucose 89 mg/dL (65-115); Magnesium 2.3 mg/dL (1.7-2.3); Osmolality Calculated 285 mOsm/kg (285-295); Potassium 5.1 mmol/L (3.5-5.1); Sodium 137 mmol/L (136-145)
[2022-07-18] MEDS: sucralfate 1 gm Tablet PO ×4 (06:29→20:53)
[2022-07-18 07:05] LABS: NT Pro B Type Natriuretic Pept 2226 pg/mL (0-125)
--- NOTE | 2022-07-18 09:00 | PC.SOCIAL ---
IMM Updated Updated pt on IMM. No questions voiced. Provided pt a copy. Initialed, dated, & timed copy in chart.
[2022-07-18] MEDS: pantoprazole DR 40 mg Tablet PO ×2 (09:08→20:53)
[2022-07-18] MEDS: ferrous sulfate EC 325 mg Tablet PO ×2 (09:09→17:22)
[2022-07-18] MEDS: nystatin powder 15 gm Btl 1 APPLIC TOPICAL ×2 (09:09→17:23)
[2022-07-18] MEDS: tamsulosin 0.4 mg Capsule PO (09:09)
[2022-07-18] MEDS: spironolactone 25 mg Tablet PO (09:09)
[2022-07-18] MEDS: FUROsemide 10 mg/mL SDV 4mL 40 MG IVP (09:12)
[2022-07-18] MEDS: metoprolol tartrate 25 mg Tablet 12.5 MG PO (09:12)
--- NOTE | 2022-07-18 11:35 | ECG_ITS ---
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 Measurements Intervals [place] Rate: 84 P: [place]: QRS: 10 QRSD: 93 T: 71 QT: 398 QTc: 471 Interpretive Statements ATRIAL FIBRILLATION ABNORMAL RHYTHM ECG Compared to ECG 07/14/2022 15:48:59 No significant changes Electronically Signed On 07-18-2022 16:10:52 CORK CUTTER by Miya Fitch M.D. [id number]
[2022-07-18 11:50] LABS: Glucose Point of Care 118 mg/dL (70-110)
[2022-07-18 12:17] LABS: Troponin(5th) Baseline 33 ng/L (0-15)
--- NOTE | 2022-07-18 12:37 | PC.PT ---
Patient not seen per nursing request.
[2022-07-18 13:03] LABS: Magnesium 2.2 mg/dL (1.7-2.3)
--- NOTE | 2022-07-18 13:16 | ECG_ITS ---
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 Measurements Intervals [place] Rate: 89 P: [place]: QRS: 12 QRSD: 89 T: 60 QT: 362 QTc: 442 Interpretive Statements ATRIAL FIBRILLATION ABNORMAL RHYTHM ECG Compared to ECG 07/18/2022 11:35:59 No significant changes Electronically Signed On 07-18-2022 16:07:20 DIRECTOR OF AVIATION by Miya Fitch M.D. [id number]
[2022-07-18 13:49] LABS: Troponin 5 2HR 32.28 ng/L (0-15); Troponin 5 2HR Delta -0.72 ABS# (0-10)
--- NOTE | 2022-07-18 13:53 | PC.NURSE ---
1125 pt had a 54 beat run of vtach. asymptomatic. orders obtained for ekg series, and trop series and mag level. ekg showed afib with a rate 84. orders were given to stop 12.5 metoprolol and change to 25mg bid. orders entered, see nov. mag level came back at 2.2. physician notified. patient resting comfortably.
--- NOTE | 2022-07-18 14:46 | PM.PN ---
Subjective Subjective: Patient was seen this, he tells me he feels a lot better his abdominal distention his lower extremity edema has significantly improved, Vitals/I&O/Wt Last Vital Signs Temp 97.6 F 07/18/22 07:24 Pulse 84 07/18/22 13:52 Resp 16 07/18/22 07:24 BP 99/65 07/18/22 11:39 Pulse Ox 91 07/18/22 11:39 O2 Del Method 07/18/22 03:29 07/17/22 07/18/22 07/18/22 23:59 06:59 14:59 Intake Total Output Total 1849 Balance -1849 / Physical Exam Const: COMMON NORMALS: no acute distress and patient oriented x3 Resp: COMMON NORMALS: normal respiratory effort, No retractions, No use of accessory muscles and clear to auscultation bilaterally AUSCULTATION: clear to auscultation bilaterally Cardio: COMMON NORMALS: regular rate, regular rhythm, S1 normal heart sound present and S2 normal heart sound present RATE: regular rate RHYTHM: regular rhythm HEART SOUNDS: S1 normal heart sound present and S2 normal heart sound present GI: COMMON NORMALS: Normal to inspection, nondistended, normoactive bowel sounds present, non-tender and no masses Extremity: COMMON NORMALS: no pedal edema Neuro: COMMON NORMALS: patient oriented x3 Psych: COMMON NORMALS: mental status grossly normal Urinary Catheter Management: Banuelos: Cath Placed During This Visit: yes, but has since been removed by the nurse Reason for Continuing Indwelling Catheter: Decision to DC Catheter Urinary Catheter Date of Insertion: 07/13/22 Date Urinary Catheter Removed: 07/18/22 Time Urinary Catheter Discontinued: 13:51 Data : 07/18/22 05:34 07/18/22 05:34 A&P Assessment and plan (1) Atrial fibrillation: (2) Anasarca: (3) UTI (urinary tract infection): (4) Diastolic CHF, acute on chronic: Plan 71-year-old male with a past medical history of hypertension, presenting today with chief complaints of progressively increasing lower extremity and abdominal swelling, clinically appearing to be anasarca. Likely diastolic CHF exacerbation Source is currently under evaluation Given lower extremity swelling, bilateral pleural effusions, pulmonary congestion on chest x-ray, elevated BNP, atrial fibrillation and a possible history of valvular issues, suspect that may be related to underlying CHF. Will obtain echocardiogram to estimate EF, diastolic function, evaluate for valvular function. Other possibilities for diffuse anasarca include underlying liver cirrhosis given history of daily alcohol consumption, however his LFTs are currently within normal limits and liver appears to be normal on CAT scan from today. His albumin is normal range at 3.4. Patient had urinary retention, needed placement of Banuelos catheter by urology, denies any known history of CKD. Creatinine today is normal at 0.9. Less likely that anasarca related to CKD. denies any past history of COPD, echocardiogram ordered to evaluate for any right heart failure. Patient is -22 liters Switch to p.o. Lasix 40 every 12 hours Remove Banuelos catheter Had 1 episode of nonsustained V. tach, 54 beats, to me it is likely A. fib with RVR, increase metoprolol to 25 twice daily, serial EKGs her troponins, mag within normal limits New onset atrial fibrillation, currently rate controlled No acute ST-T wave changes noted currently. Continue metoprolol CHADS2 vascular score assuming history of at least hypertension is at 2. may have additional points added if w/up confirms CHF. Reports a past history of Hb 3.2 needing several units blood transfusion. Uncertain if this was related to GI bleed. Per patient no cause was able to be determined at the time. Will obtain records from [facility]. Continue Eliquis, Protonix, Carafate, iron studies, Hemoccult stool, monitor hemoglobin UTI completed Rocephin PT OT Working on placement Attestations Medical Necessity Statement*: patient requires hospitalization for chf Coding Level of Care Code Acute Stone Spreader Operator for g Fwd Diagnoses Atrial fibrillation I48.91 Anasarca R60.1 UTI (urinary tract infection) N39.0 Diastolic CHF, acute on chronic I50.33
[2022-07-18] MEDS: FUROsemide 40 mg Tablet PO (15:38)
[2022-07-18] MEDS: metoprolol tartrate 25 mg Tablet PO ×2 (17:22→20:53)
[2022-07-18 19:32] LABS: Troponin 5 6HR 33.93 ng/L (0-15)
[2022-07-18 19:44] LABS: Troponin 5 6HR Delta 0.93 ng/L (0-12)
[2022-07-19] MEDS: apixaban 5 mg Tablet PO ×2 (00:03→13:20)
[2022-07-19 04:26] VITALS: BP 127/76; PULSE 18; RESP 87; TEMP 36.4; O2SAT 96
[2022-07-19 04:48] LABS: Basophils % 0.4 %; Eosinophils # 0.3 10^3/uL (0.0-0.8); Eosinophils % 4.5 %; Hematocrit 47.3 % (42.0-52.0); Hemoglobin 14.3 g/dL (11.7-16.6); Lymphocytes # 1.3 10^3/uL (0.8-4.8); Lymphocytes % 23.4 %; Mean Corpuscular HGB Conc 30.2 g/dL (30.0-36.0); Mean Corpuscular Hemoglobin 29.3 pg (28.0-34.0); Mean Corpuscular Volume 96.9 fl (80-94); Mean Platelet Volume 11.2 fL (7.4-10.4); Monocytes # 0.7 10^3/uL (0.2-0.9); Monocytes % 11.6 %; Neutrophils # 3.36 10^3/uL (1.8-7.7); Neutrophils % 59.7 %; Nucleated Red Blood Cells % 0 %; Platelet Count 254 10^3/cmm (130-400); Red Blood Count 4.88 10^6/uL (4.1-5.3); Red Cell Distribution Width 14.6 % (12.1-15.1); White Blood Count 5.6 10^3/uL (4.0-10.0)
[2022-07-19 05:21] LABS: Blood Urea Nitrogen 23 mg/dL (8-23); Calcium 9.4 mg/dL (8.5-10.5); Carbon Dioxide 37 mmol/L (22-29); Chloride 90 mmol/L (98-107); Glucose 87 mg/dL (65-115); NT Pro B Type Natriuretic Pept 2104 pg/mL (0-125); Osmolality Calculated 277 mOsm/kg (285-295); Sodium 132 mmol/L (136-145)
[2022-07-19 05:28] VITALS: PULSE 86
[2022-07-19 07:39] VITALS: BP 144/81; PULSE 91; RESP 18; TEMP 36.5; O2SAT 97
[2022-07-19] MEDS: ferrous sulfate EC 325 mg Tablet PO (07:40)
[2022-07-19] MEDS: spironolactone 25 mg Tablet PO (07:40)
[2022-07-19] MEDS: tamsulosin 0.4 mg Capsule PO (07:40)
[2022-07-19] MEDS: sucralfate 1 gm Tablet PO ×2 (07:40→11:07)
[2022-07-19] MEDS: pantoprazole DR 40 mg Tablet PO (07:40)
[2022-07-19] MEDS: FUROsemide 40 mg Tablet PO (07:40)
[2022-07-19] MEDS: metoprolol tartrate 25 mg Tablet PO (07:41)
--- NOTE | 2022-07-19 11:32 | PM.DCS ---
Discharge Providers Date of Admission: 07/13/22 21:56 Date of Discharge: July 19, 2022 Attending Provider at Admission: Yesika Dalton MD Attending Provider at Discharge: Adrian Day MD Diagnoses at Discharge Discharge Diagnosis (1) Atrial fibrillation: Status: Acute (2) Anasarca: Status: Acute (3) UTI (urinary tract infection): Status: Acute (4) Diastolic CHF, acute on chronic: Status: Acute Reason for Visit Reason for Visit: SOB Hospital Course Hospital Course 71-year-old male who lives alone in [place], (stating that he takes care of himself most of the time his rest of the family is in [place]), presented with chief complaint of generalized body swelling, he was diagnosed with preserved ejection fraction heart failure exacerbation and new onset A. fib RVR he does have mild mitral tricuspid valve regurgitation, no wall motion abnormality, rate controlled he was started on Eliquis history of GI bleed however hemoglobin has remained stable patient is to go to alf at the time of discharge. Banuelos catheter was placed by urology, he does have BPH, voiding trial was successful we will add tamsulosin at discharge Physical Exam Narrative: Morbidly obese No acute signs of respiratory distress Currently on room air Awake and alert Variable S1-S2 Pleasant cooperative Nonfocal neuro exam EOMI, PERRLA Urinary Catheter Management: Banuelos: Cath Placed During This Visit: yes, but has since been removed by the nurse Reason for Continuing Indwelling Catheter: Decision to DC Catheter Urinary Catheter Date of Insertion: 07/13/22 Date Urinary Catheter Removed: 07/18/22 Time Urinary Catheter Discontinued: 13:51 Discharge Data Studies Completed and Pending Completed Studies During Hospitalization Category Date Time Status CT abdomen pelvis wo con [id number] Stat Cat Scan 07/13/22 20:05 Completed XR chest 1V portable [id number] Stat Exams 07/13/22 17:57 [place] [id number] Routine Ultrasound 07/14/22 00:19 Completed CV. echo wo/w contrast [id number] Routine Ultrasound 07/14/22 00:19 Completed Pending at discharge Category Date Time Status Basic Metabolic Panel AM LABS Lab 07/20/22 04:00 Ordered Basic Metabolic Panel AM LABS Lab 07/21/22 04:00 Ordered C DIFF [Clostridioides Difficile PCR] Routine Lab 07/17/22 17:15 Ordered COVID [SARS Covid-2 Antigen] Routine Lab 07/19/22 11:10 Received Complete Blood Count w/Auto AM LABS Lab 07/20/22 04:00 Ordered Complete Blood Count w/Auto AM LABS Lab 07/21/22 04:00 Ordered NT Pro B Type Natriuretic Pept QAM Lab 07/20/22 06:00 Ordered NT Pro B Type Natriuretic Pept QAM Lab 07/21/22 06:00 Ordered Occult Blood Stool [Immunochemical Fecal OCB] Routine Lab 07/14/22 10:40 Uncollected Radiology Impressions Chest X-Ray 07/13/22 17:57 IMPRESSION: 1. Right lower lobe pneumonia. 2. Cardiomegaly. 3. Pulmonary vascular congestion. 4. Trace bilateral pleural effusions suspected. Abdomen/Pelvis CT 07/13/22 20:05 IMPRESSION: 1. Negative for acute inflammatory process in the abdomen or pelvis. 2. Moderate bilateral pleural effusions. 3. Bibasilar atelectasis versus minimal infiltrate. 4. Cholecystectomy. 5. Right adrenal 3.9 cm indeterminate nodule, dedicated nonemergent adrenal imaging could further evaluate this. 6. Anasarca suspected. 7. Banuelos catheter in the urinary bladder. Laboratory Results WBC 5.6 10^3/uL (4.0-10.0) 07/19/22 04:26 RBC 4.88 10^6/uL (4.1-5.3) 07/19/22 04:26 Hgb 14.3 g/dL (11.7-16.6) 07/19/22 04:26 Hct 47.3 % (42.0-52.0) 07/19/22 04:26 MCV 96.9 fl (80-94) H 07/19/22 04:26 MCH 29.3 pg (28.0-34.0) 07/19/22 04:26 MCHC 30.2 g/dL (30.0-36.0) 07/19/22 04:26 RDW 14.6 % (12.1-15.1) 07/19/22 04:26 Plt Count 254 10^3/cmm (130-400) 07/19/22 04:26 MPV 11.2 fL (7.4-10.4) H 07/19/22 04:26 Neut % (Auto) 59.7 % 07/19/22 04:26 Lymph % (Auto) 23.4 % 07/19/22 04:26 Murray % (Auto) 11.6 % 07/19/22 04:26 Eos % (Auto) 4.5 % 07/19/22 04:26 Baso % (Auto) 0.4 % 07/19/22 04:26 Neut # (Auto) 3.36 10^3/uL (1.8-7.7) 07/19/22 04:26 Lymph # (Auto) 1.3 10^3/uL (0.8-4.8) 07/19/22 04:26 Murray # (Auto) 0.7 10^3/uL (0.2-0.9) 07/19/22 04:26 Eos # (Auto) 0.3 10^3/uL (0.0-0.8) 07/19/22 04:26 Baso # (Auto) 0.0 10^3/uL (0.0-0.1) 07/19/22 04:26 Nucleated RBC % (auto) 0 % 07/19/22 04:26 Nucleated RBCs # 0.0 /100WBC 07/19/22 04:26 APTT 94.5 SECONDS (23.9-36.7) H D 07/16/22 11:42 Sodium 132 mmol/L (136-145) L 07/19/22 04:26 Potassium 5.0 mmol/L (3.5-5.1) 07/19/22 04:26 Chloride 90 mmol/L (98-107) L 07/19/22 04:26 Carbon Dioxide 37 mmol/L (22-29) H 07/19/22 04:26 Anion Gap 10.0 (5-19) 07/19/22 04:26 BUN 23 mg/dL (8-23) 07/19/22 04:26 Creatinine 1.1 mg/dL (0.7-1.2) 07/19/22 04:26 GFR Calculation Not Reportable 07/19/22 04:26 Glucose 87 mg/dL (65-115) 07/19/22 04:26 POC Glucose 118 mg/dL (70-110) H 07/18/22 11:27 Estimat Average Glucose 94 07/17/22 03:50 Hemoglobin A1c 4.9 % (4.0-6.0) 07/17/22 03:50 Calculated Osmolality 277 mOsm/kg (285-295) L 07/19/22 04:26 Calcium 9.4 mg/dL (8.5-10.5) 07/19/22 04:26 Magnesium 2.2 mg/dL (1.7-2.3) 07/18/22 11:40 Iron 41 ug/dL (59-158) L 07/14/22 09:30 TIBC 266 mcg/dl 07/14/22 09:30 % Saturation 15.4 % (20-50) L 07/14/22 09:30 Unsat Iron Binding 225 ug/dL (112-347) 07/14/22 09:30 Ferritin 39 ng/mL (30-400) 07/14/22 09:30 Total Bilirubin 1.0 mg/dL (0.15-1.2) 07/15/22 05:21 AST 16 U/L (0-40) 07/15/22 05:21 ALT 12 U/L (0-41) 07/15/22 05:21 Alkaline Phosphatase 164 U/L (40-130) H 07/15/22 05:21 Troponin T Gen 5 ng/L 33 ng/L (0-15) H 07/13/22 19:48 Troponin T Baseline 33 ng/L (0-15) H 07/18/22 11:40 Troponin T 120 Minute 32.28 ng/L (0-15) H 07/18/22 13:03 Delta Troponin T -0.72 ABS# (0-10) L 07/18/22 13:03 Troponin T Hi Sens 6Hr 33.93 ng/L (0-15) H 07/18/22 18:40 Troponin T Hi Sens 6Hr Delta 0.93 ng/L (0-12) 07/18/22 18:40 NT-Pro-B Natriuret Pep 2104 pg/mL (0-125) H 07/19/22 04:26 Total Protein 6.7 g/dL (6.6-8.7) 07/15/22 05:21 Albumin 2.9 g/dL (3.5-5.2) L 07/15/22 05:21 Globulin 3.8 g/dL (1.3-4.6) 07/15/22 05:21 Lipase 21 U/L (13-60) 07/13/22 19:48 TSH 2.19 uIU/mL (0.27-4.20) 07/15/22 05:21 Urine Color Yellow (Yellow) 07/13/22 20:08 Urine Appearance Hazy (CLEAR) A 07/13/22 20:08 Urine pH 5 (5-7) 07/13/22 20:08 Ur Specific [place] 1.020 (1.005-1.030) 07/13/22 20:08 Urine Protein 1+ (Negative) H 07/13/22 20:08 Urine Glucose (UA) Norm (Normal) 07/13/22 20:08 Urine Ketones 1+ (Negative) H 07/13/22 20:08 Urine Blood 3+ (Negative) H 07/13/22 20:08 Urine Nitrate Negative (Negative) 07/13/22 20:08 Urine Bilirubin Neg (Negative) 07/13/22 20:08 Urine Urobilinogen 1 mg/dL (Negative) H 07/13/22 20:08 Ur Leukocyte Esterase 1+ (Negative) H 07/13/22 20:08 Urine RBC Too numerous to cnt /hpf (0-2) H 07/13/22 20:08 Urine WBC 10-15 /hpf (0-5) H 07/13/22 20:08 Ur Squamous Epith Cells 0-4 /hpf (0-5) H 07/13/22 20:08 Calcium Oxalate Crystal 1 /hpf 07/13/22 20:08 Amorphous Sediment Not Reportable 07/13/22 20:08 Urine Bacteria 2+ /hpf (NONE) H 07/13/22 20:08 Vitals Last Vital Signs Temp 97.7 F 07/19/22 07:39 Pulse 91 07/19/22 07:39 Resp 18 07/19/22 07:39 BP 144/81 07/19/22 07:39 Pulse Ox 97 07/19/22 07:39 O2 Del Method 07/19/22 07:39 Discharge Plan Discharge Patient Disposition: Xfer SNF Condition: Stable Prescriptions: New furosemide 40 mg Tablet 40 mg PO BID@08,16 Qty: 60 0RF sucralfate 1 gram Tablet 1 g PO AC&BEDTIME Qty: 60 0RF spironolactone 25 mg Tablet 25 mg PO DAILY Qty: 30 0RF tamsulosin 0.4 mg Capsule 0.4 mg PO DAILY Qty: 30 0RF pantoprazole 40 mg Tablet,Delayed Release (Dr/Ec) 40 mg PO Q12H Qty: 60 0RF ferrous sulfate 325 mg (65 mg iron) Tablet,Delayed Release (Dr/Ec) 325 mg PO BEDTIME Qty: 30 0RF metoprolol tartrate 25 mg Tablet 25 mg PO BID@0900,2100 Qty: 60 0RF Eliquis 5 mg Tablet 5 mg PO Q12H Qty: 60 0RF Continued multivitamin Tablet 1 tab PO QAM iron 325 mg (65 mg iron) Tablet 325 mg PO QAM Discharge Orders: Discharge Order (Routine); Ordered 07/19/22 Ordered By: Lisy Santos Other Ambulatory Orders: DME: [facility] (Order) Location: None Selected Ordered By: Adrian Day Referrals: [facility] [Outside] Radha Knutson FNP [Nurse Practitioner] - 07/26/22 10:15 am Discharge Diet: Cardiac Discharge Activity: Increase activity as tolerated Patient Instructions: Furosemide (By mouth), Apixaban (By mouth), Heart Failure (GEN), A-fib (Atrial Fibrillation) (GEN), Opioid Safety Discharge Attestations Time Spent in Discharge Care*: less than 30 min Quality Metrics Clinical Quality Measures [ No reported AMI, CVA or VTE this stay] Coding Level of Care Code Acute g FW DC note Diagnoses Atrial fibrillation I48.91 Anasarca R60.1 UTI (urinary tract infection) N39.0 Diastolic CHF, acute on chronic I50.33
[2022-07-19 11:35] VITALS: BP 137/78; RESP 18; TEMP 36.3
[2022-07-19 11:49] LABS: SARS Covid-2 Antigen negative (Negative)
[2022-07-19 13:06] VITALS: BP 137/78; PULSE 91; RESP 18; TEMP 36.3; O2SAT 97
== END 2022-07-19 14:41 | disposition skilled nursing facility (03) | DRG 291 ==
LOC: ER 22:47 → MEDSURG 23:05
PROVIDERS: Internal Medicine; Admitting Provider Student in an Organized Health Care Education/Training Program; Emergency Provider Emergency Medicine; Visit Provider Family Medicine
DX: I11.0 Hypertensive heart disease with heart failure (principal); I50.33 Acute on chronic diastolic (congestive) heart failure; N39.0 Urinary tract infection, site not specified; Z68.43 Body mass index [BMI] 50.0-59.9, adult; I48.91 Unspecified atrial fibrillation; E66.01 Morbid (severe) obesity due to excess calories; I07.1 Rheumatic tricuspid insufficiency; Z79.01 Long term (current) use of anticoagulants
CPT/HCPCS: 36415; 36416; 51702; 71045; 74176; 80048; 80053; 81001; 82728; 82962; 83036; 83540; 83550; 83690; 83735; 83880; 84443; 84484; 85025; 85049; 85730; 87077; 87086; 87186; 87426; 93005; 93970; 96372; 96374; 97110; 97116; 97161; 97166; 97530; 99285; C8929; J0696; J1644; J1650; J1940; Q9956

== ENCOUNTER → 2022-08-03 09:53 | Outpatient (BNVA) | payer MEDICARE, OTHER, SELFPAY | PROVIDERS: Visit Provider Nurse Practitioner Family | DX: I96 Gangrene, not elsewhere classified (principal); L97.512 Non-pressure chronic ulcer of other part of right foot with fat layer exposed; L84 Corns and callosities | CPT/HCPCS: 11042; 99213 ==

== ENCOUNTER → 2022-08-10 09:19 | Outpatient (BNVA) | payer MEDICARE, OTHER, SELFPAY | PROVIDERS: Visit Provider Nurse Practitioner Family | DX: I96 Gangrene, not elsewhere classified (principal); L97.512 Non-pressure chronic ulcer of other part of right foot with fat layer exposed | CPT/HCPCS: 11042; A6446 ==

== ENCOUNTER → 2022-08-17 08:57 | Outpatient (BNVA) | payer MEDICARE, OTHER, SELFPAY | PROVIDERS: Visit Provider Nurse Practitioner Family | DX: I96 Gangrene, not elsewhere classified (principal); L97.512 Non-pressure chronic ulcer of other part of right foot with fat layer exposed | CPT/HCPCS: 11042 ==

== ENCOUNTER → 2022-08-24 09:23 | Outpatient (BNVA) | payer OTHER, SELFPAY | PROVIDERS: Visit Provider Thoracic Surgery (Cardiothoracic Vascular Surgery) | DX: I96 Gangrene, not elsewhere classified (principal); L97.512 Non-pressure chronic ulcer of other part of right foot with fat layer exposed; G62.9 Polyneuropathy, unspecified | CPT/HCPCS: 97597; A6212 ==

== ENCOUNTER → 2022-08-31 12:57 | Outpatient (BNVA) | payer MEDICARE, OTHER, SELFPAY | PROVIDERS: Visit Provider Thoracic Surgery (Cardiothoracic Vascular Surgery) | DX: Z09 Encounter for follow-up examination after completed treatment for conditions other than malignant neoplasm (principal) | CPT/HCPCS: 99202 ==